=== PATIENT | male | born 1975 | race African-American/Black ===

== ENCOUNTER 2024-04-25 14:15 | Emergency (ER) | payer SELFPAY ==
[2024-04-25 17:34] LABS: BASOPHILS ABSOLUTE AUTO 0.05 K/uL (0.00-0.20); BASOPHILS PERCENT AUTO 0.5 % (0.0-1.0); EOSINOPHILS ABSOLUTE AUTO 0.39 K/uL (0.00-0.45); EOSINOPHILS PERCENT AUTO 3.8 % (0.0-6.0); HEMATOCRIT 36.7 % (42.0-52.0); HEMOGLOBIN 11.8 g/dL (14.0-18.0); IMMATURE GRAN ABSOLUTE AUTO 0.03 K/uL (0.00-0.05); IMMATURE GRAN PERCENT AUTO 0.3 % (0.0-0.4); LYMPHOCYTES ABSOLUTE AUTO 2.07 K/uL (1.00-4.80); MEAN CORPUSCULAR HEMOGLOBIN 31.6 pg (28.0-32.0); MEAN CORPUSCULAR HGB CONC 32.2 g/dL (32.0-36.0); MEAN CORPUSCULAR VOLUME 98.4 fL (83.0-99.0); MEAN PLATELET VOLUME 9.8 fL (9.4-12.4); MONOCYTES PERCENT AUTO 9.7 % (0.0-8.0); NEUTROPHILS ABSOLUTE AUTO 6.81 K/uL (1.80-7.70); NEUTROPHILS PERCENT AUTO 65.7 % (41.0-71.0); PLATELET COUNT,PLT 226 K/uL (150-400); RED BLOOD CELL COUNT 3.73 M/uL (4.52-5.90); WHITE BLOOD CELL COUNT,WBC 10.35 K/uL (3.9-11.3)
[2024-04-25 17:35] LABS: APPEARANCE,URINE CLEAR; BILIRUBIN,URINE NEGATIVE (NEGATIVE); COLOR,URINE YELLOW; GLUCOSE,URINE NEGATIVE (NEGATIVE); KETONES,URINE NEGATIVE (NEGATIVE); LEUKOCYTE ESTERASE,URINE NEGATIVE (NEGATIVE); NITRITE,URINE NEGATIVE (NEGATIVE); OCCULT BLOOD,URINE NEGATIVE (NEGATIVE); PH,URINE 6.5 (5.0-8.0); PROTEIN,URINE NEGATIVE (NEGATIVE); UROBILINOGEN,URINE 0.2 EU/dL (<2.0)
[2024-04-25 17:45] LABS: A/G RATIO 1.2 (0.9-1.6); ALBUMIN 3.7 g/dL (3.4-5.0); BILIRUBIN TOTAL 0.3 mg/dL (0.2-1.0); CALCIUM 7.9 mg/dL (8.5-10.1); CARBON DIOXIDE,CO2 23.7 mmol/L (21.0-32.0); CREATININE 7.1 mg/dL (0.8-1.3); EST CRCL DRUG DOSING (CG) 11.77 mL/min; POTASSIUM,K 5.8 mmol/L (3.5-5.1); PROTEIN TOTAL,TP 6.7 g/dL (6.4-8.2)
[2024-04-25] MEDS: Sodium Chloride 0.9% 2.5 ML Syringe FLUSH PRN (18:07)
[2024-04-25] MEDS: Sodium Chloride 0.9% 10 ML Syringe FLUSH PRN (18:08)
[2024-04-25] MEDS: Magnesium Sulfate/Water Premix 4 GM in Premix Bag 1 BAG IV STA (18:08)
[2024-04-25] MEDS ORDERED: Glucagon,Human Recombinant 1 MG Vial IM PRN (18:11)
[2024-04-25] MEDS ORDERED: Calcium Gluc in NaCl, ISO-OSM 1,000 MG in Premix Bag 1 BAG IV SCH (18:15)
[2024-04-25] MEDS: Calcium Gluconate 10% 1 GM/10 ML SDV ONE (18:37)
[2024-04-25] MEDS: Calcium Gluconate 10% 1 GM/10 ML SDV IVPUSH STA ×2 (19:03→22:54)
[2024-04-25] MEDS: 50% Dextrose in Water 50 ML Syringe IVPUSH STA ×2 (19:03→22:17)
[2024-04-25] MEDS: Insulin Regular, Human 100 Units/ML 10 ML Vial IVPUSH STA ×2 (19:04→22:22)
[2024-04-25] MEDS: 50% Dextrose in Water 50 ML Syringe IVPUSH PRN (19:48)
[2024-04-25] MEDS: Furosemide 40 MG/4 ML VIAL IVPUSH STA ×2 (19:50→22:14)
[2024-04-25 21:25] LABS: CALCIUM 8.5 mg/dL (8.5-10.1); CARBON DIOXIDE,CO2 22.8 mmol/L (21.0-32.0); CREATININE 6.9 mg/dL (0.8-1.3); EST CRCL DRUG DOSING (CG) 12.11 mL/min; POTASSIUM,K 5.9 mmol/L (3.5-5.1)
[2024-04-25] MEDS: Albuterol 0.083% 2.5 MG/3 ML Neb Soln NEB STA (22:17)
== END 2024-04-25 23:06 ==
LOC: MW.ED 14:15 → EDSEX 14:15 → MW.ED 23:06
DX: I12.0 Hypertensive chronic kidney disease with stage 5 chronic kidney disease or end stage renal disease (principal); N18.6 End stage renal disease; Z99.2 Dependence on renal dialysis; E83.42 Hypomagnesemia; F17.210 Nicotine dependence, cigarettes, uncomplicated; Z79.82 Long term (current) use of aspirin; Z79.899 Other long term (current) drug therapy; Z75.8 Other problems related to medical facilities and other health care
CPT/HCPCS: 36415; 71046; 80048; 80053; 81003; 82947; 83690; 83735; 85025; 96365; 96366; 96375; 96376; 99285; J0612; J1940; J3475; J3490; 93010; J1815-GY; J7620-GY

== ENCOUNTER 2024-05-02 08:39 | Emergency (ER) | payer SELFPAY ==
[2024-05-02] MEDS ORDERED: Sodium Chloride 0.9% 10 ML Syringe FLUSH PRN (09:14)
[2024-05-02] MEDS ORDERED: Sodium Chloride 0.9% 2.5 ML Syringe FLUSH PRN (09:14)
[2024-05-02 09:40] LABS: BASOPHILS ABSOLUTE AUTO 0.03 K/uL (0.00-0.20); BASOPHILS PERCENT AUTO 0.3 % (0.0-1.0); EOSINOPHILS ABSOLUTE AUTO 0.29 K/uL (0.00-0.45); EOSINOPHILS PERCENT AUTO 2.7 % (0.0-6.0); HEMATOCRIT 34.1 % (42.0-52.0); HEMOGLOBIN 11.3 g/dL (14.0-18.0); IMMATURE GRAN ABSOLUTE AUTO 0.02 K/uL (0.00-0.05); IMMATURE GRAN PERCENT AUTO 0.2 % (0.0-0.4); LYMPHOCYTES ABSOLUTE AUTO 1.29 K/uL (1.00-4.80); LYMPHOCYTES PERCENT AUTO 11.8 % (24.0-44.0); MEAN CORPUSCULAR HEMOGLOBIN 31.8 pg (28.0-32.0); MEAN CORPUSCULAR HGB CONC 33.1 g/dL (32.0-36.0); MEAN CORPUSCULAR VOLUME 96.1 fL (83.0-99.0); MEAN PLATELET VOLUME 9.6 fL (9.4-12.4); NEUTROPHILS ABSOLUTE AUTO 8.07 K/uL (1.80-7.70); PLATELET COUNT,PLT 214 K/uL (150-400); RED BLOOD CELL COUNT 3.55 M/uL (4.52-5.90)
[2024-05-02 10:03] LABS: A/G RATIO 1.1 (0.9-1.6); ALBUMIN 3.6 g/dL (3.4-5.0); BILIRUBIN TOTAL 0.2 mg/dL (0.2-1.0); CALCIUM 7.5 mg/dL (8.5-10.1); CARBON DIOXIDE,CO2 21.6 mmol/L (21.0-32.0); CREATININE 11.5 mg/dL (0.8-1.3); EST CRCL DRUG DOSING (CG) 8.02 mL/min; POTASSIUM,K 6.1 mmol/L (3.5-5.1); PROTEIN TOTAL,TP 6.8 g/dL (6.4-8.2)
[2024-05-02] MEDS ORDERED: Furosemide 20 MG/2 ML VIAL IVPUSH ONE (10:47)
[2024-05-02] MEDS ORDERED: Furosemide 100 MG/10 ML SDV IVPUSH ONE (11:00)
[2024-05-02] MEDS ORDERED: Furosemide 40 MG/4 ML VIAL IVPUSH ONE (11:15)
[2024-05-02] MEDS: Insulin Regular, Human 100 Units/ML 10 ML Vial IVPUSH ONE (11:38)
[2024-05-02] MEDS: Sodium Zirconium Cyclosilicate 10 GM Packet PO STA (11:39)
[2024-05-02] MEDS: Calcium Gluconate 10% 1 GM/10 ML SDV IVPUSH ONE (11:41)
[2024-05-02] MEDS: 50% Dextrose in Water 50 ML Syringe IVPUSH ONE ×3 (11:47→13:10)
[2024-05-02] MEDS: Furosemide 100 MG/10 ML SDV IVPUSH ONE (11:48)
[2024-05-02] MEDS: Acetaminophen 325 MG Tab PO ONE (12:27)
== END 2024-05-02 13:36 ==
LOC: MW.ED 08:39
DX: I12.0 Hypertensive chronic kidney disease with stage 5 chronic kidney disease or end stage renal disease (principal); N18.6 End stage renal disease; E87.5 Hyperkalemia; R39.2 Extrarenal uremia; Z79.82 Long term (current) use of aspirin; Z79.899 Other long term (current) drug therapy; Z75.8 Other problems related to medical facilities and other health care; Z99.2 Dependence on renal dialysis
CPT/HCPCS: 36415; 71046; 80053; 82947; 85025; 96374; 96375; 96376; 99285; A9270; J0612; J1815; J1940; 99291; J3490

== ENCOUNTER 2024-05-09 20:05 | Emergency (ER) | payer SELFPAY ==
[2024-05-09] MEDS ORDERED: Sodium Chloride 0.9% 10 ML Syringe FLUSH PRN (20:09)
[2024-05-09 20:42] LABS: BASOPHILS ABSOLUTE AUTO 0.04 K/uL (0.00-0.20); BASOPHILS PERCENT AUTO 0.5 % (0.0-1.0); EOSINOPHILS ABSOLUTE AUTO 0.34 K/uL (0.00-0.45); EOSINOPHILS PERCENT AUTO 4.2 % (0.0-6.0); HEMATOCRIT 32.3 % (42.0-52.0); IMMATURE GRAN ABSOLUTE AUTO 0.02 K/uL (0.00-0.05); IMMATURE GRAN PERCENT AUTO 0.2 % (0.0-0.4); LYMPHOCYTES ABSOLUTE AUTO 2.29 K/uL (1.00-4.80); LYMPHOCYTES PERCENT AUTO 28.3 % (24.0-44.0); MEAN CORPUSCULAR HEMOGLOBIN 31.8 pg (28.0-32.0); MEAN CORPUSCULAR HGB CONC 34.1 g/dL (32.0-36.0); MEAN CORPUSCULAR VOLUME 93.4 fL (83.0-99.0); MEAN PLATELET VOLUME 8.9 fL (9.4-12.4); MONOCYTES ABSOLUTE AUTO 0.68 K/uL (0.00-0.80); MONOCYTES PERCENT AUTO 8.4 % (0.0-8.0); NEUTROPHILS ABSOLUTE AUTO 4.71 K/uL (1.80-7.70); NEUTROPHILS PERCENT AUTO 58.4 % (41.0-71.0); PLATELET COUNT,PLT 219 K/uL (150-400); RED BLOOD CELL COUNT 3.46 M/uL (4.52-5.90); WHITE BLOOD CELL COUNT,WBC 8.08 K/uL (3.9-11.3)
[2024-05-09 21:15] LABS: A/G RATIO 1.1 (0.9-1.6); ALBUMIN 3.5 g/dL (3.4-5.0); BILIRUBIN TOTAL 0.2 mg/dL (0.2-1.0); CALCIUM 6.7 mg/dL (8.5-10.1); CREATININE 7.2 mg/dL (0.8-1.3); EST CRCL DRUG DOSING (CG) 12.81 mL/min; MAGNESIUM 1.5 mg/dL (1.8-2.4); PHOSPHORUS 5.2 mg/dL (2.6-4.7); PROTEIN TOTAL,TP 6.6 g/dL (6.4-8.2)
[2024-05-10] MEDS: Furosemide 40 MG/4 ML VIAL IVPUSH ONE (00:24)
== END 2024-05-10 03:21 ==
LOC: MW.ED 20:05
DX: E87.70 Fluid overload, unspecified (principal); I12.0 Hypertensive chronic kidney disease with stage 5 chronic kidney disease or end stage renal disease; N18.6 End stage renal disease; E83.39 Other disorders of phosphorus metabolism; E78.00 Pure hypercholesterolemia, unspecified; Z79.82 Long term (current) use of aspirin; Z99.2 Dependence on renal dialysis; Z91.158 Patient's noncompliance with renal dialysis for other reason; Z79.899 Other long term (current) drug therapy
CPT/HCPCS: 36415; 71045; 80053; 83735; 83880; 84100; 85025; 96374; 99285; J1940; 99284

== ENCOUNTER 2024-06-22 07:38 | Emergency (ER) | payer SELFPAY ==
[2024-06-22] MEDS ORDERED: Sodium Chloride 0.9% 2.5 ML Syringe FLUSH PRN (08:01)
[2024-06-22] MEDS ORDERED: Sodium Chloride 0.9% 10 ML Syringe FLUSH PRN (08:01)
[2024-06-22 08:15] LABS: BASOPHILS ABSOLUTE AUTO 0.08 K/uL (0.00-0.20); BASOPHILS PERCENT AUTO 1.3 % (0.0-1.0); EOSINOPHILS ABSOLUTE AUTO 0.53 K/uL (0.00-0.45); EOSINOPHILS PERCENT AUTO 8.6 % (0.0-6.0); HEMATOCRIT 35.5 % (42.0-52.0); HEMOGLOBIN 12.1 g/dL (14.0-18.0); IMMATURE GRAN ABSOLUTE AUTO 0.01 K/uL (0.00-0.05); IMMATURE GRAN PERCENT AUTO 0.2 % (0.0-0.4); LYMPHOCYTES ABSOLUTE AUTO 1.34 K/uL (1.00-4.80); LYMPHOCYTES PERCENT AUTO 21.8 % (24.0-44.0); MEAN CORPUSCULAR HEMOGLOBIN 31.8 pg (28.0-32.0); MEAN CORPUSCULAR HGB CONC 34.1 g/dL (32.0-36.0); MEAN CORPUSCULAR VOLUME 93.2 fL (83.0-99.0); MEAN PLATELET VOLUME 9.1 fL (9.4-12.4); MONOCYTES ABSOLUTE AUTO 0.77 K/uL (0.00-0.80); MONOCYTES PERCENT AUTO 12.5 % (0.0-8.0); NEUTROPHILS ABSOLUTE AUTO 3.42 K/uL (1.80-7.70); NEUTROPHILS PERCENT AUTO 55.6 % (41.0-71.0); PLATELET COUNT,PLT 263 K/uL (150-400); RED BLOOD CELL COUNT 3.81 M/uL (4.52-5.90); WHITE BLOOD CELL COUNT,WBC 6.15 K/uL (3.9-11.3)
[2024-06-22 08:48] LABS: A/G RATIO 1.2 (0.9-1.6); BILIRUBIN TOTAL 0.3 mg/dL (0.2-1.0); CARBON DIOXIDE,CO2 15.9 mmol/L (21.0-32.0); CREATININE 4.8 mg/dL (0.8-1.3); EST CRCL DRUG DOSING (CG) 19.22 mL/min; MAGNESIUM 1.7 mg/dL (1.8-2.4); PHOSPHORUS 3.8 mg/dL (2.6-4.7); POTASSIUM,K 6.5 mmol/L (3.5-5.1); PROTEIN TOTAL,TP 7.3 g/dL (6.4-8.2)
[2024-06-22] MEDS ORDERED: Glucagon,Human Recombinant 1 MG Vial IM PRN (09:10)
[2024-06-22] MEDS ORDERED: 50% Dextrose in Water 50 ML Syringe IVPUSH PRN (09:10)
[2024-06-22 09:12] LABS: LACTIC ACID 0.7 mmol/L (0.4-2.0)
[2024-06-22] MEDS: 50% Dextrose in Water 50 ML Syringe IVPUSH ONE (09:25)
[2024-06-22] MEDS: Sodium Polystyrene Sulfonate 15 GM/60 ML Susp 60 ML Bot PO ONE (09:25)
[2024-06-22] MEDS: Albuterol 0.083% 2.5 MG/3 ML Neb Soln NEB ONE (09:26)
[2024-06-22] MEDS: Calcium Gluconate 10% 1 GM/10 ML SDV IVPUSH ONE (09:26)
[2024-06-22] MEDS: Insulin Regular, Human 100 Units/ML 10 ML Vial IVPUSH ONE (09:26)
[2024-06-22] MEDS: Furosemide 40 MG/4 ML VIAL IV ONE (09:34)
[2024-06-22] MEDS ORDERED: Calcium Gluconate 10% 1 GM/10 ML SDV IVPUSH ONE (13:11)
[2024-06-22] MEDS: Calcium Gluc in NaCl, ISO-OSM 1,000 MG in Premix Bag 1 BAG IV ONE (14:16)
[2024-06-23 08:50] LABS: HEMATOCRIT 34.3 % (42.0-52.0); HEMOGLOBIN 11.6 g/dL (14.0-18.0); MEAN CORPUSCULAR HEMOGLOBIN 31.4 pg (28.0-32.0); MEAN CORPUSCULAR HGB CONC 33.8 g/dL (32.0-36.0); MEAN PLATELET VOLUME 9.4 fL (9.4-12.4); PLATELET COUNT,PLT 227 K/uL (150-400); RED BLOOD CELL COUNT 3.69 M/uL (4.52-5.90); WHITE BLOOD CELL COUNT,WBC 5.98 K/uL (3.9-11.3)
[2024-06-23 09:07] LABS: CALCIUM 7.7 mg/dL (8.5-10.1); CARBON DIOXIDE,CO2 17.9 mmol/L (21.0-32.0); CREATININE 4.8 mg/dL (0.8-1.3); EST CRCL DRUG DOSING (CG) 19.22 mL/min; POTASSIUM,K 4.4 mmol/L (3.5-5.1)
== END 2024-06-23 10:02 | disposition home or self-care (01) ==
LOC: MW.ED 07:38
DX: I12.0 Hypertensive chronic kidney disease with stage 5 chronic kidney disease or end stage renal disease (principal); N18.6 End stage renal disease; E87.5 Hyperkalemia; R91.1 Solitary pulmonary nodule; R94.31 Abnormal electrocardiogram [ECG] [EKG]; E78.00 Pure hypercholesterolemia, unspecified; F17.210 Nicotine dependence, cigarettes, uncomplicated; Z79.82 Long term (current) use of aspirin; Z79.899 Other long term (current) drug therapy; Z75.8 Other problems related to medical facilities and other health care; Z99.2 Dependence on renal dialysis
CPT/HCPCS: 36415; 71046; 80048; 80053; 82947; 83605; 83690; 83735; 84100; 84132; 84484; 85025; 85027; 93005; 94640; 96365; 96375; 96376; 99285; A9270; J0613; J1940; J0612; J7620-GY